=== PATIENT | female | born 1960 | race Two or more races ===

== ENCOUNTER 2020-04-05 08:26 | Emergency (ER) | payer OTHER ==
--- NOTE | 2020-04-05 08:55 | EKG REPORT ---
SEVERITY:- ABNORMAL ECG - SINUS RHYTHM BORDERLINE INFERIOR Q WAVES NONSPECIFIC T ABNORMALITIES, INFERIOR LEADS : Confirmed by: Breanna Zambrano MD 05-Apr-2020 08:55:16
[2020-04-05] MEDS ORDERED: ACETAMINOPHEN 325 MG TABLET PO ONE (09:52)
--- NOTE | 2020-04-05 09:56 | ER Document Report ---
ED General - General Chief Complaint: Chest Pain Stated Complaint: CHEST PAIN,VOMITING,SORE THROAT Time Seen by Provider: 04/05/20 09:25 Primary Care Provider: DALJIT URBAN [NO LOCAL MD] - Follow up as needed Mode of Arrival: Ambulatory Information source: Patient Notes: This 59-year-old woman presents to the emergency department with a history of cough, shortness of breath, chest pain which began approximately 4 days ago. 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 She has not gotten the results. She denies fever, loss of appetite, fatigue or muscle aches and pains. She has had episodic nausea without vomiting and cough which is nonproductive. She complains of midsternal chest discomfort which can be reproduced by pushing on the sternum. She denies CAD, she is not a smoker and has a history of hypertension. TRAVEL OUTSIDE OF THE [place] IN LAST 30 DAYS: No - Related Data Allergies/Adverse Reactions: No Known Allergies Allergy (Verified 04/05/20 08:37) Past Medical History - Social History Smoking Status: Former Smoker Frequency of alcohol use: None Drug Abuse: None Family History: Reviewed & Not Pertinent Review of Systems - Review of Systems Notes: Constitutional: Negative for fever. HENT: Negative for sore throat. Eyes: Negative for visual changes. Cardiovascular: See HPI Respiratory: Negative for shortness of breath. Gastrointestinal: Negative for abdominal pain, vomiting or diarrhea. Genitourinary: Negative for dysuria. Musculoskeletal: Negative for back pain. Skin: Negative for rash. Neurological: Negative for headaches, weakness or numbness. 10 point ROS negative except as marked above and in HPI. Physical Exam - Vital signs Vitals: Temp Resp Pulse Ox 97.6 F 16 100 04/05/20 09:39 04/05/20 09:39 04/05/20 09:39 - Notes Notes: PHYSICAL EXAMINATION: Physical Exam: General: Well-nourished well-developed 79-year-old female in no acute distress HEENT: NC/AT, pupils equal round and reactive to light, MM moist,nares clear, oropharynx clear, airway patent Neck: supple, no adenopathy, no masses. Good range of motion Lungs: clear, no wheezing, no rales no rhonchi Chest: Tenderness to palpation in the midsternal region CVS: Regular rate and rhythm no murmur gallop or rub Abdomen: Soft, active, nontender, no masses, no hepatosplenomegaly Ext: No edema, clubbing or cyanosis. Neuro: Alert and responsive, moving all 4 extremities on command, cranial nerves intact, no focal findings Skin: Intact no open lesions, no rash PSYCH: Normal mood, normal affect. Course - Re-evaluation Re-evalutation: 04/05/20 12:08 I discussed the patient with Dr. Carney, cardiology here at [facility]. He states that the patient should be transferred to a center with interventional cardiology. She is being treated as a non-STEMI, nitroglycerin drip, aspirin, Lovenox and morphine for pain. Presently the patient has improved. 04/05/20 12:15 I have discussed the findings with the patient and explained to her that she is having an sub-acute coronary event. And that she will have to be transferred to a facility that has interventional cardiology available. The patient is in agreement with being transferred. 04/05/20 15:08 Transfer Evaluation Prior to Transport. Patient is being transferred to [facility], evaluation at the time of transfer, patient is hemodynamically stable. She continues to have chest pain that she rates a 3/10, she is on 40 mics of IV nitroglycerin. Transport team successfully moved the patient onto the stretcher without incident. Patient stable for transport. - Vital Signs Vital signs: Temp Pulse Resp BP Pulse Ox 97.6 F 17 130/83 H 99 04/05/20 09:39 04/05/20 14:04 04/05/20 14:04 04/05/20 14:04 - Laboratory Result Diagrams: 04/05/20 09:53 04/05/20 09:53 Laboratory results interpreted by me: 04/05/20 04/05/20 09:53 09:53 MCV 78 L MCH 25.9 L RDW 14.6 H NT-Pro-B Natriuret Pep 353 H - Diagnostic Test Radiology reviewed: Image reviewed, Reports reviewed Radiology results interpreted by me: 04/05/20 12:18 Chest x-ray: No acute findings. - EKG Interpretation by Al EKG shows normal: Sinus rhythm - EKG interpreted by Dr. Bentley: Normal sinus rhythm, rate 83, QT interval 376, normal axis axis, VA interval 164, no acute ST or T wave abnormalities, small Q waves in II and III, there is no prior EKG to compare. Critical Care Note - Critical Care Note Total time excluding time spent on procedures (mins): 60 - Critical care time spent obtaining history from patient or surrogate, discussions with consultants, development of treatment plan with patient or surrogate, evaluation of patient's response to treatment, examination of patient, ordering and performing treatments and interventions, ordering and review of laboratory studies, re- evaluation of patient's condition, ordering and review of radiographic studies and review of old charts Discharge - Discharge Clinical Impression: Non-STEMI (non-ST elevated myocardial infarction) Condition: Good Disposition: [facility] Referrals: LOCALMD,NO [NO LOCAL MD] - Follow up as needed
[2020-04-05 10:11] LABS: ABSOLUTE EOSINOPHILS # (AUTO) 0.2 10^3/uL (0.0-0.6); ABSOLUTE LYMPHOCYTES (AUTO) 2.2 10^3/uL (0.5-4.7); ABSOLUTE MONOCYTES (AUTO) 0.7 10^3/uL (0.1-1.4); ABSOLUTE NEUT (AUTO) 4.9 10^3/uL (1.7-8.2); BASOPHILS % (AUTO) 0.3 % (0-2); EOSINOPHILS % (AUTO) 2.8 % (0-6); HEMATOCRIT 39.9 % (36.0-47.0); HEMOGLOBIN 13.2 g/dL (12.0-15.5); LYMPHOCYTES % (AUTO) 27.1 % (13-45); MEAN CORPUSCULAR HEMOGLOBIN 25.9 pg (27.0-33.4); MEAN CORPUSCULAR HGB CONC 33.1 g/dL (32.0-36.0); MEAN CORPUSCULAR VOLUME 78 fl (80-97); MONOCYTES % (AUTO) 8.5 % (3-13); PLATELET COUNT 365 10^3/uL (150-450); RED BLOOD COUNT 5.11 10^6/uL (3.72-5.28); RED CELL DISTRIBUTION WIDTH 14.6 % (11.5-14.0); SEGMENTED NEUTROPHILS % (AUTO) 61.3 % (42-78); TOTAL CELLS COUNTED % (AUTO) 100 %
[2020-04-05 10:38] LABS: ALBUMIN 4.5 g/dL (3.5-5.0); ALKALINE PHOSPHATASE 53 U/L (38-126); ANION GAP 12 (5-19); ASPARTATE AMINO TRANSFERASE 33 U/L (14-36); BILIRUBIN,DIRECT 0.3 mg/dL (0.0-0.4); BILIRUBIN,TOTAL 0.4 mg/dL (0.2-1.3); BLOOD UREA NITROGEN 18 mg/dL (7-20); CALCIUM 9.9 mg/dL (8.4-10.2); CARBON DIOXIDE 25 mmol/L (22-30); CHLORIDE 103 mmol/L (98-107); GLUCOSE 106 mg/dL (75-110); POTASSIUM 4.2 mmol/L (3.6-5.0); TOTAL PROTEIN 7.7 g/dL (6.3-8.2)
--- NOTE | 2020-04-05 10:41 | RADIOLOGY REPORT (SQ) ---
EXAM DESCRIPTION: CHEST SINGLE VIEW IMAGES COMPLETED DATE/TIME: 04/05/2020 10:31 am REASON FOR STUDY: chest pain COMPARISON: 12/02/2017. EXAM PARAMETERS: NUMBER OF VIEWS: One view. TECHNIQUE: Single frontal radiographic view of the chest acquired. RADIATION DOSE: NA LIMITATIONS: None. FINDINGS: LUNGS AND PLEURA: No opacities, masses or pneumothorax. No pleural effusion. MEDIASTINUM AND HILAR STRUCTURES: No masses. Contour normal. HEART AND VASCULAR STRUCTURES: Heart normal in size. Normal vasculature. BONES: No acute findings. HARDWARE: None in the chest. OTHER: No other significant finding. IMPRESSION: NO ACUTE RADIOGRAPHIC FINDING IN THE CHEST. TECHNICAL DOCUMENTATION: JOB ID: [id number] [employer]- All Rights Reserved Reading location - IP/workstation name: [email or web address]
[2020-04-05] MEDS ORDERED: ASPIRIN 81 MG TABLET, CHEWABLE PO ONE (10:59)
[2020-04-05] MEDS ORDERED: NITROGLYCERIN 2% OINTMENT 1 GM PACKET TP ONE (11:00)
[2020-04-05] MEDS ORDERED: MORPHINE SULFATE 10 MG/ML INJ IV ONE (11:08)
[2020-04-05] MEDS ORDERED: NITROGLYCERIN/D5W 50 MG/250 ML RTUINJ IV PRN (12:14)
[2020-04-05] MEDS ORDERED: ENOXAPARIN SODIUM INJ 100 MG/1 ML DISP.SYRIN SUBCUT SCH (12:15)
[2020-04-05 15:10] VITALS: BP 114/81
== END 2020-04-05 15:15 | disposition short-term general hospital (02) ==
LOC: ER 08:26
DX: I21.4 Non-ST elevation (NSTEMI) myocardial infarction (principal); I10 Essential (primary) hypertension; R05 Cough; R06.02 Shortness of breath; R07.9 Chest pain, unspecified; R11.0 Nausea; Z87.891 Personal history of nicotine dependence
CPT/HCPCS: 93005; 99291; 96374; 36415; 85025; 80053; 84484; 83880; 71045; 93010; J2270; J3490; J1650